=== PATIENT | female | born 1965 ===

== ENCOUNTER → 2021-01-10 09:17 | Outpatient (BNVA) | payer OTHER, MEDICAID, SELFPAY | PROVIDERS: Visit Provider Psychiatry & Neurology Neurology | DX: R42 Dizziness and giddiness (principal); R55 Syncope and collapse; G43.009 Migraine without aura, not intractable, without status migrainosus; Q90.9 Down syndrome, unspecified; R41.3 Other amnesia; I10 Essential (primary) hypertension; E11.9 Type 2 diabetes mellitus without complications | CPT/HCPCS: 99205 ==

== ENCOUNTER → 2021-03-16 12:48 | Outpatient (BNVA) | payer OTHER, MEDICAID, SELFPAY | PROVIDERS: Visit Provider Psychiatry & Neurology Neurology | DX: R42 Dizziness and giddiness (principal); R55 Syncope and collapse; G43.009 Migraine without aura, not intractable, without status migrainosus; Q90.9 Down syndrome, unspecified; R41.3 Other amnesia | CPT/HCPCS: 99214 ==

== ENCOUNTER → 2023-04-17 09:42 | Outpatient (BNVA) | payer MEDICARE, MEDICAID, SELFPAY | PROVIDERS: PCP Family Medicine; Referring Provider Family Medicine; Visit Provider Physician Assistant Surgical | DX: K21.9 Gastro-esophageal reflux disease without esophagitis (principal); R91.8 Other nonspecific abnormal finding of lung field; R05.3 Chronic cough | CPT/HCPCS: 36415; 99215 ==

== ENCOUNTER 2023-04-17 13:21 | Outpatient (REF) | payer MEDICARE, MEDICAID, SELFPAY ==
[2023-04-18 23:01] LABS: Aspergillus Fumigatus IgE <0.10 kU/L (<0.70); Candida Albicans (Monilia),IgE <0.10 kU/L (<0.70); Cat Epithelium IgE <0.10 kU/L (<0.70); Cedar, IgE <0.10 kU/L (<0.70); Cockroach IgE <0.10 kU/L (<0.70); D Farinae IgE <0.10 kU/L (<0.70); D Pteronyssinus IgE <0.10 kU/L (<0.70); Dog Dander IgE <0.10 kU/L (<0.70); Goldenrod IgE <0.10 kU/L (<0.70); Mouse Serum Protein IgE <0.10 kU/L (<0.70); Penicillium chrysogenum IgE <0.10 kU/L (<0.70)
[2023-04-19 10:39] LABS: IgE 3 IU/mL (<158)
== END 2023-04-17 13:22 | disposition home or self-care (01) ==
LOC: LBN 13:21
PROVIDERS: PCP Family Medicine; Visit Provider Physician Assistant Surgical
DX: T78.40XA Allergy, unspecified, initial encounter (principal); R05.3 Chronic cough
CPT/HCPCS: 86003; 82785; 87070; 87205

== ENCOUNTER → 2023-05-28 08:37 | Outpatient (BNVA) | payer MEDICARE, MEDICAID, SELFPAY | PROVIDERS: PCP Family Medicine; Referring Provider Family Medicine; Visit Provider Student in an Organized Health Care Education/Training Program | DX: R05.3 Chronic cough (principal); K21.9 Gastro-esophageal reflux disease without esophagitis; R91.8 Other nonspecific abnormal finding of lung field | CPT/HCPCS: 99214 ==

== ENCOUNTER → 2023-08-28 09:17 | Outpatient (BNVA) | payer MEDICARE, MEDICAID, SELFPAY | PROVIDERS: PCP Family Medicine; Referring Provider Family Medicine; Visit Provider Physician Assistant Surgical | DX: R05.3 Chronic cough (principal); K21.9 Gastro-esophageal reflux disease without esophagitis; R91.8 Other nonspecific abnormal finding of lung field | CPT/HCPCS: 99214 ==

== ENCOUNTER → 2023-10-28 09:57 | Outpatient (BNVA) | payer MEDICARE, MEDICAID, SELFPAY | PROVIDERS: PCP Family Medicine; Referring Provider Family Medicine; Visit Provider Student in an Organized Health Care Education/Training Program | DX: R05.3 Chronic cough (principal); K21.9 Gastro-esophageal reflux disease without esophagitis; R91.8 Other nonspecific abnormal finding of lung field | CPT/HCPCS: 99214 ==

== ENCOUNTER → 2024-08-25 09:09 | Outpatient (BNVA) | payer MEDICARE, MEDICAID, SELFPAY | PROVIDERS: PCP Family Medicine; Referring Provider Family Medicine; Visit Provider Physician Assistant Surgical | DX: R91.8 Other nonspecific abnormal finding of lung field (principal); R05.3 Chronic cough; K21.9 Gastro-esophageal reflux disease without esophagitis | CPT/HCPCS: 99214 ==

== ENCOUNTER → 2025-01-11 10:57 | Outpatient (BNVA) | payer MEDICARE, MEDICAID, SELFPAY | PROVIDERS: PCP Family Medicine; Referring Provider Family Medicine; Visit Provider Nurse Practitioner Gerontology | DX: N20.0 Calculus of kidney (principal); R32 Unspecified urinary incontinence; R10.9 Unspecified abdominal pain; M54.50 Low back pain, unspecified; R35.1 Nocturia; E11.59 Type 2 diabetes mellitus with other circulatory complications; I10 Essential (primary) hypertension; R39.9 Unspecified symptoms and signs involving the genitourinary system | CPT/HCPCS: 99215; 81002; 51798 ==

== ENCOUNTER 2025-01-20 03:19 | Outpatient (CLI) | payer MEDICARE, MEDICAID, SELFPAY ==
--- NOTE | 2025-01-20 09:54 | DI.CT_ITS ---
Exam(s) CT RENAL COLIC WO EXAM: CT RENAL COLIC WO CLINICAL HISTORY: right flank pain,URINARY INCONTINENCE,KIDNEY STONE,N20.0,R32,R10.9. TECHNIQUE: Imaging Protocol: Axial computed tomography images with coronal and sagittal reformatted images were created and reviewed. COMPARISON: CT CT CHEST WO CONTRAST from 04/03/[address] CHEST WO CONTRAST from 09/07/2024 FINDINGS: Lung Bases: No acute findings. Liver: Normal density. No measurable mass. Gallbladder and biliary tract: Cholecystectomy. No biliary ductal dilation. Pancreas: No abnormal calcifications or inflammatory process. Spleen: Normal size. Kidneys: Normal size and axis.12 millimeter calculus left mid kidney. Other tiny calculi noted bilaterally. Left upper and mid pole renal scarring. No suspicious masses seen. Adrenal glands: Stable benign right adrenal adenoma. No follow-up recommended. Lymph nodes: Within normal limits. Vasculature: Abdominal aorta non-dilated. Bladder:Nearly empty. Not well evaluated. No stones. No gross evidence of mass. Bowel: Diverticulum of the descending duodenum. No bowel obstruction. No bowel wall thickening. Appendix normal. Peritoneal cavity: No ascites.No free air. No focal collection. No mesenteric inflammatory response. Reproductive organs: Within normal limits. Bones: Unremarkable for age. Soft Tissues: Small fatty hernia arm adjacent to the umbilicus. Fatty right inguinal hernia. IMPRESSION: Bilateral nephrolithiasis. Left renal cortical scarring. No evidence of ureteral calculi or hydronephrosis. The bladder is not well evaluated due to under distension. RADIATION DOSE DELIVERED: 582.53mGy.cm Total DLP 582.53mGy.cm Total DLP DATA REPOSITORY: All CT scans at this facility are submitted to the National Radiology Data Registry (NRDR) Dose Index Registry (DIR) with the [employer] ([employer]). RADIATION OPTIMIZATION: All CT scans at this facility use at least one of these dose optimization techniques: automated exposure control; mA and/or kV adjustment per patient size (includes targeted exams where dose is matched to clinical indication); or iterative reconstruction.
== END 2025-01-20 03:39 ==
LOC: DI 03:22
PROVIDERS: PCP Family Medicine; Visit Provider Nurse Practitioner Gerontology
DX: R10.9 Unspecified abdominal pain (principal); R32 Unspecified urinary incontinence; N20.0 Calculus of kidney
CPT/HCPCS: 74176

== ENCOUNTER → 2025-01-21 07:32 | Outpatient (BNVA) | payer MEDICARE, MEDICAID, SELFPAY | PROVIDERS: PCP Family Medicine; Referring Provider Family Medicine; Visit Provider Nurse Practitioner Gerontology | DX: N20.0 Calculus of kidney (principal); M54.50 Low back pain, unspecified | CPT/HCPCS: 99213 ==

== ENCOUNTER → 2025-02-23 13:45 | Outpatient (BNVA) | payer MEDICARE, MEDICAID, SELFPAY | PROVIDERS: PCP Family Medicine; Referring Provider Family Medicine; Visit Provider Nurse Practitioner Gerontology | DX: R32 Unspecified urinary incontinence (principal); N20.0 Calculus of kidney; R39.9 Unspecified symptoms and signs involving the genitourinary system | CPT/HCPCS: 99214; 81002; 51798 ==